=== PATIENT | male | born 1995 | race Caucasian/White ===

== ENCOUNTER 2016-06-04 16:42 | Inpatient (IN) | payer BC ==
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
[2016-06-04] MEDS ORDERED: LORazepam 1 MG TAB PO ONE (18:40)
[2016-06-04 18:56] LABS: % IMMATURE GRANULYOCYTES 0.2 % (0.0-1.1); ABSOLUTE IMMATURE GRANULOCYTES 0.02 10^3/uL (0.00-0.10); ADD DIFF? NO; ADD MORPH? NO; ADD SCAN? NO; ATYPICAL LYMPHOCYTE FLAG 0 (0-99); FRAGMENT RBC FLAG 0 (0-99); HEMATOCRIT 49.2 % (40.0-51.0); HEMOGLOBIN 17.6 g/dL (13.7-17.5); LEFT SHIFT FLG 0 (0-99); LIPEMIA HEMOLYSIS FLAG 90 (0-99); MEAN CELL HEMOGLOBIN 31.9 pg (27.9-34.1); MEAN CELL HEMOGLOBIN CONCENTR. 35.8 g/dL (32.4-36.7); MEAN CELL VOLUME 89.3 fL (81.5-99.8); MEAN PLATELET VOLUME 9.5 fL (8.7-11.7); PLATELET CLUMPS FLAG 10 (0-99); PLATELET COUNT 289 10^3/uL (150-400); RED BLOOD CELL COUNT 5.51 10^6/uL (4.40-6.38); RED CELL DISTRIBUTION WIDTH 12.8 % (11.5-15.2)
[2016-06-04 19:06] LABS: ANION GAP 16 mEq/L (8-16); CALCIUM 10.3 mg/dL (8.5-10.4); CARBON DIOXIDE 26 mEq/l (22-31); CHLORIDE 102 mEq/L (97-110); CREATININE 1.1 mg/dL (0.7-1.3); ETHANOL SERUM < 10 mg/dL (0-10); GLOMERULAR FILTRATION RATE > 60; GLUCOSE 80 mg/dL (70-100); POTASSIUM 4.3 mEq/L (3.5-5.2); SODIUM 144 mEq/L (134-144)
[2016-06-05] MEDS ORDERED: NICOTINE POLACRILEX 2 MG GUM B PRN (16:31)
[2016-06-05] MEDS ORDERED: MAG HYDROX/AL HYDROX/SIMETH 30 ML UDCUP PO PRN (16:31)
[2016-06-05] MEDS ORDERED: MAGNESIUM HYDROXIDE 30 ML UDCUP PO PRN (16:31)
[2016-06-05] MEDS ORDERED: LORazepam 0.5 MG TAB PO PRN (16:31)
[2016-06-05] MEDS: OLANZapine DISINTEGR 10 MG TAB PO PRN (18:38)
[2016-06-05] MEDS: OLANZapine 2.5 MG TAB PO SCH (21:34)
--- NOTE | 2016-06-06 10:02 | GCON ---
[f rep st] CONSULTATION CONSULTATION IS AN INTERNAL MEDICINE CONSULTATION ON THE PSYCHIATRIC UNIT. DATE OF CONSULTATION: 06/06/2016 BODY AFER REPORT TITLE: HPI: This is a 20-year-old male, who has a history of attention deficit disorder and anxiety syndrom e who was seen on 06/04 and admitted through the emergency department because of paranoid behavior an d aggressive behavior at home. He had become concerned, anxious, was evaluated through the emergency department. Noted to have delusional ideas and paranoid ideation and was admitted to the psychiatri c unit. Medically he reports he has recently been well and healthy without acute medical illnesses. PAST MEDICAL HISTORY: He has an anxiety disorder and attention deficit disorder for which he has pre viously been prescribed Xanax. He denies a history of asthma, allergies, high blood pressure, diabet es or renal problems. He may have a history of seasonal allergies with hay fever in the spring but keagan noland are not active at this time. PAST SURGICAL HISTORY: None. He had been evaluated for baseball injuries with shoulder x-rays in 12 03 without subsequent surgery. ALLERGIES: None. MEDICATIONS: He has been prescribed Xanax in the past. He was not taking it at the time. He, by hi story today, seems reluctant to take medication. REVIEW OF SYSTEMS: A 10-point review of systems is specifically negative per history of the patient. Specifically he denies any recent change in vision, sore throat, chest pain, orthopnea, PND or hist ory of cardiac dysrhythmia. Denies recent cough, shortness of breath, abdominal pain, diarrhea. The re is no history of recurrent joint problems, back pain or recent musculoskeletal trauma. He has no rashes. He denies a headache or head trauma. FAMILY HISTORY: His parents are . His mother remarried and he has been living with his [facility]. He had a disrupted childhood during his adolescent years. 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 Alcohol: None and never an abuse. Marijuana: He is using marijuana daily. He does not like to smoke marijuana but he prefers to use edibles. Other drugs of abuse of c ocaine had been used in the remote past but none recently. He has used LSD approximately 30 times an d most recently, on 05/17. Family history is negative for psychiatric disorder. PHYSICAL EXAMINATION: GENERAL: This is a pleasant, alert gentleman who at this time is calm when in terviewing him in the psychiatric unit. VITAL SIGNS: Normal. HEENT: Shows TMs are degroot bilaterall y. Tongue and buccal mucosa are normal without lesions or signs of trauma. Teeth are in good repair without periodontal disease. NECK: Supple without meningismus. Thyroid nonpalpable, not enlarged and nontender. LUNGS: Clear to P and A without wheezing or rales. HEART: Singular S1 and S2. No murmur, gallop or rub. ABDOMEN: Nontender, benign. No masses, tenderness or organomegaly. EXTREMI TIES: No edema, cyanosis or clubbing. Joints show no erythema. SKIN: No rashes. NEUROLOGIC: Meka ws an oriented x3 calm gentleman. Cranial nerves II through XII intact to specific testing. LABORATORY DATA: CBC is entirely normal. Chemistry panel is also normal with a normal TSH and free T4. Renal function normal. Tox screen was positive for marijuana and otherwise negative. ASSESSMENT: 1. Acute psychiatric disorder characterized by paranoia, delusional thoughts in a gentleman with a h istory of ADD and anxiety disorder. He is currently being treated on the psychiatric unit. 2. Drug abuse of marijuana and LSD. Marijuana is active and the [facility] is most current as of 05/17. 3. Medical clearance for psychiatric care: The gentleman is cleared medically with care on the ps hiatric unit. He has no active medical problems. If you require further assistance, please call. TIME: This consultation required 1 hour or 60 minutes. /[id number]/MODL
[2016-06-06] MEDS ORDERED: ALPRAZolam 0.25 MG TAB PO PRN (10:43)
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
[2016-06-06] MEDS: ALPRAZolam 0.5 MG TAB PO PRN ×3 (11:44→18:39)
[2016-06-06] MEDS: DIVALPROEX NA 250 MG TAB PO SCH ×2 (11:45→18:39)
[2016-06-06] MEDS: OLANZapine 2.5 MG TAB PO SCH (18:38)
[2016-06-07] MEDS: ALPRAZolam 0.5 MG TAB PO PRN ×3 (08:06→21:20)
[2016-06-07] MEDS: OLANZapine DISINTEGR 10 MG TAB PO PRN ×2 (08:07→14:08)
[2016-06-07] MEDS: DIVALPROEX NA 250 MG TAB PO SCH ×2 (08:08→21:17)
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
[2016-06-07] MEDS: OLANZapine 2.5 MG TAB PO SCH (21:18)
[2016-06-08] MEDS: OLANZapine DISINTEGR 10 MG TAB PO PRN ×3 (02:27→16:14)
[2016-06-08] MEDS: ALPRAZolam 0.5 MG TAB PO PRN ×4 (02:27→17:42)
[2016-06-08] MEDS: DIVALPROEX NA 250 MG TAB PO SCH ×2 (08:29→20:16)
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
[2016-06-08] MEDS: OLANZapine 2.5 MG TAB PO SCH (20:17)
[2016-06-09] MEDS: ALPRAZolam 0.5 MG TAB PO PRN ×3 (01:43→15:56)
[2016-06-09] MEDS: DIVALPROEX NA 250 MG TAB PO SCH ×2 (08:09→18:58)
[2016-06-09] MEDS: OLANZapine DISINTEGR 10 MG TAB PO PRN (08:15)
[2016-06-09] MEDS: ACETAMINOPHEN 325 MG TAB PO PRN (10:20)
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
[2016-06-09] MEDS: IBUPROFEN 600 MG TAB PO PRN (13:22)
[2016-06-09] MEDS: OLANZapine 2.5 MG TAB PO SCH (18:58)
[2016-06-10] MEDS: OLANZapine DISINTEGR 10 MG TAB PO PRN ×2 (04:29→19:11)
[2016-06-10] MEDS: ALPRAZolam 0.5 MG TAB PO PRN ×3 (04:31→16:19)
[2016-06-10] MEDS: DIVALPROEX NA 250 MG TAB PO SCH ×2 (08:51→19:14)
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
[2016-06-10] MEDS: ACETAMINOPHEN 325 MG TAB PO PRN (10:48)
[2016-06-10] MEDS: IBUPROFEN 600 MG TAB PO PRN (13:08)
[2016-06-10] MEDS: OLANZapine 2.5 MG TAB PO SCH (20:27)
[2016-06-11 06:15] VITALS: BP 135/63; PULSE 108; RESP 12; TEMP 97.8; O2SAT 95
[2016-06-11] MEDS: ALPRAZolam 0.5 MG TAB PO PRN ×2 (09:06→14:43)
[2016-06-11] MEDS: DIVALPROEX NA 250 MG TAB PO SCH (09:06)
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
[2016-06-11] MEDS: OLANZapine DISINTEGR 10 MG TAB PO PRN (14:43)
[2016-06-11] MEDS: OLANZapine 2.5 MG TAB PO SCH (20:10)
[2016-06-11] MEDS ORDERED: DIVALPROEX NA 500 MG TAB PO SCH (21:00)
[2016-06-12] MEDS: OLANZapine DISINTEGR 10 MG TAB PO PRN (08:17)
[2016-06-12] MEDS: ALPRAZolam 0.5 MG TAB PO PRN (08:17)
[2016-06-12] MEDS ORDERED: DIVALPROEX NA 250 MG TAB PO SCH (09:00)
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
== END 2016-06-12 12:45 | disposition home or self-care (01) | DRG 885 ==
LOC: BBEH 06-05 16:15
PROVIDERS: ADMIT Psychiatry & Neurology Psychiatry; ATTEND Psychiatry & Neurology Psychiatry
DX: F31.2 Bipolar disorder, current episode manic severe with psychotic features (principal); F12.20 Cannabis dependence, uncomplicated; F10.10 Alcohol abuse, uncomplicated; F15.10 Other stimulant abuse, uncomplicated; F16.10 Hallucinogen abuse, uncomplicated; F19.10 Other psychoactive substance abuse, uncomplicated
CPT/HCPCS: 80305; G0480